=== PATIENT | male | born 1950 | race Caucasian/White ===

== ENCOUNTER → 2021-03-16 | Outpatient (CLI) | payer OTHER ==
[~2021-03-16] MED LIST: ASA81BEC PO; ATENOLOL 25 MG25 M1 PO; CARVEDILOL3.125 MG PO; CENTANY30 GM NARES; CO-ENZYME Q-1010 MG PO; COREG6.25 MG PO; CRESTOR40 MG PO; ENTRESTO 49 MG1 EACH PO; JARDIANCE10 MG PO; METFORMIN HCL500 M3 PO; METFORMIN HCL500 MG PO; PACERONE 200 M200 M1 PO; SPIRONOLACTONE25 MG PO; TORSEMIDE20 MG PO; VITAMIN B-121000 MC2 SUBLING; VITAMIN D310 MC2 PO
== END ==
LOC: SJCVCIMAG 11:37 → SJCVC 11:37
PROVIDERS: ATTEND Internal Medicine Cardiovascular Disease
DX: I08.8 Other rheumatic multiple valve diseases (principal); I49.3 Ventricular premature depolarization; R94.31 Abnormal electrocardiogram [ECG] [EKG]; I25.5 Ischemic cardiomyopathy; E78.00 Pure hypercholesterolemia, unspecified; I25.10 Atherosclerotic heart disease of native coronary artery without angina pectoris; I13.0 Hypertensive heart and chronic kidney disease with heart failure and stage 1 through stage 4 chronic kidney disease, or unspecified chronic kidney disease; E11.22 Type 2 diabetes mellitus with diabetic chronic kidney disease; N18.30 Chronic kidney disease, stage 3 unspecified; I50.23 Acute on chronic systolic (congestive) heart failure; R06.00 Dyspnea, unspecified; Z87.891 Personal history of nicotine dependence; Z72.89 Other problems related to lifestyle; Z79.82 Long term (current) use of aspirin; Z79.899 Other long term (current) drug therapy; Z82.49 Family history of ischemic heart disease and other diseases of the circulatory system; Z88.8 Allergy status to other drugs, medicaments and biological substances; Z79.84 Long term (current) use of oral hypoglycemic drugs; Z88.1 Allergy status to other antibiotic agents

== ENCOUNTER 2021-03-24 08:56 | Inpatient (IN) | payer OTHER ==
[~2021-03-24] VITALS: Ht 172.7 cm; Wt 83.0 kg
[2021-03-24] MEDS ORDERED: ASA81BEC PO (10:46)
[2021-03-24] MEDS ORDERED: ATENOLOL 25 MG25 M1 PO (10:47)
[2021-03-24] MEDS ORDERED: VITAMIN D310 MC2 PO (10:48)
[2021-03-24] MEDS ORDERED: CO-ENZYME Q-1010 MG PO (10:49)
[2021-03-24] MEDS ORDERED: VITAMIN B-121000 MC2 SUBLING (10:49)
[2021-03-24] MEDS ORDERED: CRESTOR40 MG PO (10:50)
[2021-03-24] MEDS ORDERED: METFORMIN HCL500 M3 PO (10:50)
[2021-03-24] MEDS ORDERED: ENTRESTO 49 MG1 EACH PO (10:51)
[2021-03-24] MEDS ORDERED: JARDIANCE10 MG PO (10:51)
[2021-03-24] MEDS ORDERED: SPIRONOLACTONE25 MG PO (10:52)
[2021-03-24] MEDS ORDERED: TORSEMIDE20 MG PO (10:52)
[2021-03-24 11:03] VITALS: BP 1220/80
--- NOTE | 2021-03-24 18:08 | CATHLAB ---
[facility] [place] [address] INVASIVE PROCEDURE REPORT Name: JALEEL CROUCH Room #: 216-P ADM Alexandra Rob#: [id number] Admission: 03/24/21 Attend Phys: Gibson Kumar MD, Discharge: Date of : 50 Report #: [id number] THIS REPORT FOR: cc: Raffy Miller MD, Brian MD Mancuso, Gerald M. MD [facility] ~ APPROVED REPORT Study performed: 03/24/2021 12:58:37 Patient Details Patient Status: Out-Patient Room #: The patient is a 70 year-old male Event Personnel Gibson Kumar Maintenance Controller, Xochilt Mason RN RN, Haylee Grimaldo RTR, Guy Guzman Roberta Monitor Procedures Performed Art Access - R femoral artery;Garett Access - R femoral vein Art Access - L femoral artery* Right and Left Heart Cath w/or w/o Coronarie [id number] RLHC Aortogram Abdominal Peripheral Angio 792362 Renal Bilateral Peripheral Angiography 2274642 CVRENALBIL Hemostasis w/ Mynx Hemostasis with Manual pressure 48248 Initial Mod Sed Same Phys/QHP Gr5y 388798 24694 Mod Sed Same Phys/QHP Ea 446298 Indication Dyspnea, Positive stress test Procedure Narrative The Right Groin^ was infiltrated with 1% Lidocaine subcutaneous anesthesia. A PINNACLE 6FR Sheath #[id number] sheath was inserted into the RFA. Coronary angiography was performed using coronary diagnostic catheters. The right coronary system was accessed and visualized with a JR4 catheter. The left coronary system was accessed and visualized with a JL4 catheter. The left ventricle was accessed and visualized with a PIGTAIL catheter. Left ventriculogram was performed in ARIAS projection. An aortogram of the abdominal aorta was performed. Closure device was deployed with a 6 Fr MYNX CONTROL 6F/7F L#[id number]. Hemostasis was obtained with manual pressure following sheath removal without any complications. The patient tolerated the procedure well and there were no complications associated with the procedure. There was no hematoma. [facility] [address] [place] [address] INVASIVE PROCEDURE REPORT Name: JALEEL CROUCH Room #: 216-P [facility] IN .R.#: [id number] Admission: 03/24/21 Attend Phys: Gibson Kumar, Discharge: Date of : 50 Report #: [id number] Intraoperative Conscious Sedation Sedation start time: 13:33 Case end Time: 15:59 Fentanyl 100 mcg Versed 2 mg Fluoro Time: 10.70 minutes Dose: DAP 11616.80 cGycm2 1510 mGy Contrast Type and Amount: Visipaque 114 ml Hemodynamics The right atrial mean pressure is 8 mmHg. The right ventricular pressure is 35/6 mmHg. The pulmonary artery pressure is 38/24 mmHg with a mean of 29 mmHg. The mean pulmonary capillary wedge pressure is 29 mmHg. The aortic pressure is 121/68 mmHg with a mean of 92 mmHg. The left ventricular pressure is 123/12 mmHg with a mean of mmHg. The left ventricular end diastolic pressure is 27 mmHg. The cardiac output using thermo method is 4.55 L/min. The cardiac index using thermo method is 2.19 L/min/m2. Conclusion #1 Successful right heart catheterization with cardiac output by thermodilution. See above hemodynamics. #2 right common iliac occlusion is noted. #3 abdominal aortogram revealing heavily calcified abdominal aorta with no aneurysm significant stenosis in the left iliac of probable 70% the right common iliac is occluded. Collateral filling is noted late filling of the distal right external iliac. Significant collateral vessels are noted #4 the left main is heavily calcified and moderate disease giving rise to an LAD and a circumflex. #5 LAD heavily calcified and a total or subtotal proximal segment filling a moderately diseased LAD to the apex. Multiple septal perforators to the inferior wall that appears #6 there is a high rising OM or ramus branch that is mild to moderately diseased but is the largest of the systems and patent it appears to come off the left main. #7 ostial circumflex has high-grade calcified disease subtotally occluded ROQUE grade I-II flow in a moderate size OM that extends to the inferior lateral wall. #8 a probable codominant or nondominant right coronary is occluded and faint collateral filling to this PDA JOSÉ system from the left system. Again it appears to be somewhat of an original codominant system. #9 dilated left ventricle with moderately severe global hypokinesis the inferior base is akinetic there is some contraction of the [facility] [address] [place] [address] INVASIVE PROCEDURE REPORT Name: JALEEL CROUCH Room #: 216-P [facility] IN M.R.#: [id number] Admission: 03/24/21 Attend Phys: Gibson Kumar, Discharge: Date of : 50 Report #: [id number] anterior apical wall. EF 20%. Recommendations and plan: Extensive evaluation discussion with CV surgery and interventional cardiology. Extremely high risk for percutaneous or revascularization by bypass. Consideration for Impella assist and laser of significant calcified LAD possible circumflex intervention. Needs diuresis and aggressive tuneup prior to entertaining revascularization in any mode. Patient is hemodynamically stable and pain-free transfer to the CCU. Right iliac is occluded possible intervention at a later date. Moderate Adi disease left iliac. Diffusely diseased aorta as stated above. Balloon pump presumably could be placed through the left femoral artery and or Impella assist device. <ELECTRONICALLY SIGNED> By: Gibson Kumar MD, FACC 03/24/211807 07 07 Gibson Kumar MD, FACC /INF
[2021-03-24 20:05] VITALS: BP 121/84
[2021-03-24 20:47] VITALS: BP 132/85
[2021-03-25] VITALS (7 sets, daily range): BP systolic 94–135; BP diastolic 66–91
[2021-03-25 02:59] LABS: HEMATOCRIT 44.4 % (42.0-52.0); HEMOGLOBIN 14.8 gm/dL (14.0-18.0); MCH 31.6 pg (26.0-34.0); MCHC 33.3 g/dL (28.0-37.0); MCV 94.8 fL (80.0-100.0); RBC 4.68 mil/uL (4.50-6.00); RDW 13.6 % (10.5-14.5); WBC 4.6 thou/uL (4.0-11.0)
[2021-03-25 03:13] LABS: APTT 28.5 Seconds (24.5-32.8); PROTIME 10.9 Seconds (10.5-12.1)
[2021-03-25 04:37] LABS: CALCIUM 8.9 mg/dL (8.5-10.1); CREATININE 1.3 mg/dL (0.7-1.3); POTASSIUM 3.6 mmol/L (3.5-5.1)
[2021-03-26 04:01] LABS: ALBUMIN 2.8 g/dL (3.4-5.0); CALCIUM 8.8 mg/dL (8.5-10.1); CREATININE 1.6 mg/dL (0.7-1.3); TOTAL BILIRUBIN 0.8 mg/dL (0.2-1.0); TOTAL PROTEIN 7.4 g/dL (6.4-8.2)
[2021-03-26 04:45] VITALS: BP 126/55; BP 98/63
[2021-03-26 07:55] VITALS: BP 93/67
[2021-03-26 11:55] VITALS: BP 104/61
[2021-03-26 15:30] VITALS: BP 101/62
[2021-03-26 20:17] VITALS: BP 101/65
[2021-03-27 04:40] VITALS: BP 93/60
[2021-03-27 07:50] VITALS: BP 122/71
[2021-03-27 11:45] VITALS: BP 101/66
[2021-03-27 15:40] VITALS: BP 104/69
[2021-03-27 20:34] VITALS: BP 122/73
[2021-03-28] VITALS (14 sets, daily range): BP systolic 100–115; BP diastolic 53–75
[2021-03-28 08:55] LABS: HEMATOCRIT 43.2 % (42.0-52.0); HEMOGLOBIN 14.3 gm/dL (14.0-18.0); MCH 31.3 pg (26.0-34.0); MCHC 33.1 g/dL (28.0-37.0); MCV 94.5 fL (80.0-100.0); RBC 4.58 mil/uL (4.50-6.00); RDW 13.8 % (10.5-14.5); WBC 7.4 thou/uL (4.0-11.0)
[2021-03-28 09:07] LABS: CALCIUM 9.1 mg/dL (8.5-10.1); CREATININE 1.3 mg/dL (0.7-1.3); POTASSIUM 4.1 mmol/L (3.5-5.1)
[2021-03-28 14:31] LABS: ABSOLUTE NEUTROPHILS 5.4 thou/uL (1.4-8.2); BASOPHILS 0.7 % (0.0-2.0); EOSINOPHILS 1.1 % (0.0-3.0); HEMATOCRIT 43.3 % (42.0-52.0); HEMOGLOBIN 14.4 gm/dL (14.0-18.0); LYMPHOCYTES 8.2 % (24.0-44.0); MCH 31.4 pg (26.0-34.0); MCHC 33.2 g/dL (28.0-37.0); MCV 94.6 fL (80.0-100.0); MONOCYTES 9.5 % (1.0-8.0); PLATELET COUNT 265 thou/uL (150-400); POLYS 80.5 % (36.0-66.0); RBC 4.58 mil/uL (4.50-6.00); RDW 13.7 % (10.5-14.5); WBC 6.7 thou/uL (4.0-11.0)
[2021-03-28 14:33] LABS: CALCIUM 9.3 mg/dL (8.5-10.1); CREATININE 1.3 mg/dL (0.7-1.3)
[2021-03-28 14:35] LABS: POTASSIUM 4.5 mmol/L (3.5-5.1)
[2021-03-28 14:40] LABS: ALBUMIN 2.8 g/dL (3.4-5.0); TOTAL BILIRUBIN 1.1 mg/dL (0.2-1.0); TOTAL PROTEIN 7.1 g/dL (6.4-8.2)
[2021-03-28 14:42] LABS: APTT 27.9 Seconds (24.5-32.8); PROTIME 10.9 Seconds (10.5-12.1)
[2021-03-28] MEDS ORDERED: COREG6.25 MG PO (16:41)
[2021-03-28] MEDS ORDERED: METFORMIN HCL500 M3 PO (16:42)
[2021-03-28 18:28] LABS: URINE BILIRUBIN NEGATIVE (Negative); URINE BLOOD NEGATIVE (Negative); URINE CLARITY CLEAR; URINE COLOR YELLOW; URINE GLUCOSE-RANDOM* NEGATIVE (Negative); URINE KETONES TRACE (Negative); URINE LEUKOCYTES-REFLEX NEGATIVE (Negative); URINE NITRITE-REFLEX NEGATIVE (Negative); URINE PROTEIN (DIPSTICK) TRACE (Negative); URINE UROBILINOGEN 0.2 E.U./dl (0.2-1.0)
[2021-03-29] VITALS (7 sets, daily range): BP systolic 98–106; BP diastolic 57–65
[2021-03-29 04:56] LABS: HEMATOCRIT 40.5 % (42.0-52.0); HEMOGLOBIN 13.5 gm/dL (14.0-18.0); MCH 31.3 pg (26.0-34.0); MCHC 33.3 g/dL (28.0-37.0); RBC 4.31 mil/uL (4.50-6.00); RDW 14.1 % (10.5-14.5); WBC 6.6 thou/uL (4.0-11.0)
[2021-03-29 05:01] LABS: CALCIUM 8.6 mg/dL (8.5-10.1); CREATININE 1.4 mg/dL (0.7-1.3); POTASSIUM 4.2 mmol/L (3.5-5.1)
[2021-03-29 07:08] LABS: GLYCOHEMOGLOBIN (HGB A1C) 7.5 % (4.8-5.6)
--- NOTE | 2021-03-29 08:11 | HC ---
[facility] [place] [address] CONSULTATION Name: JALEEL CROUCH Room #: 216-P ADM IN M.R.#: [id number] Admission: 03/24/21 Attend Phys: Gibson Kumar MD, Discharge: Date of : 50 Report #: [id number] THIS REPORT FOR: cc: Raffy Miller MD, Brian MD Forman,Kwabena Bush MD ~ We were asked by Dr. Denson to see the patient. HISTORY OF PRESENT ILLNESS: The patient is a 70-year-old admitted on 03/24/2021 for coronary artery disease and heart failure. The patient states he has a several-month history of progressive shortness of breath. This was improved by treatment for heart failure and fluid retention. The patient is normally followed by Dr. Ritesh Miller and Dr. Js Diaz in [place]. The patient was scheduled for cardiac catheterization and this was done at this institution as research was not able to accommodate the patient until March. We note that cardiac echo shows a severely reduced ventricular function with a left ventricular ejection fraction of 20%. Cardiac catheterization done on shows severe 3-vessel coronary artery disease with again poor left ventricular function in the 20% range. PAST MEDICAL HISTORY: Significant for hypertension, dyslipidemia, diabetes mellitus, chronic renal dysfunction. HOME MEDICATIONS: Includes aspirin, atenolol, metformin, rosuvastatin, Entresto, ____, spironolactone, torsemide, vitamins. ALLERGIES: ERYTHROMYCIN, which causes rash. SOCIAL HISTORY: Former smoker, quit over 20 years ago. The patient is retired from his work as an automotive parts manager. REVIEW OF SYSTEMS: GENERAL: Denies fever or chills. EYES: Wears glasses. HEENT: Denies headache, sinus problems. CARDIAC: As mentioned, shortness of breath that improved with diuretic treatment. Denies angina. Denies palpitations. RESPIRATORY: Denies cough. Claims he is able to climb 1 flight of stairs without dyspnea. GASTROINTESTINAL: Denies nausea, vomiting. GENITOURINARY: Denies urgency, frequency. MUSCULOSKELETAL: Complains of left hip pain, which limits his walking. [facility] [address] [place] [address] CONSULTATION Name: JAELEL CROUCH Room #: 216-P [facility] IN M.R.#: [id number] Admission: 03/24/21 Attend Phys: Gibson Kumar MD, Discharge: Date of : 50 Report #: [id number] NEUROLOGIC: Denies motor or sensory dysfunction. SKIN: Denies rash or infection. ENDOCRINE: Denies goiter, tremor. HEMATOLOGIC: Denies bruisability, bleeding. PHYSICAL EXAMINATION: GENERAL: The patient is in bed, in comfort. VITAL SIGNS: Temperature 36.7, heart rate 83, blood pressure 101/70, respiratory rate 18, O2 sat 95 on room air. The patient is mesomorph, not particularly frail looking. HEENT: No scleral icterus. No arcus. NECK: No mass, no bruit. CHEST: Clear with him to have rales on the right base. HEART: Rhythm regular. No murmur audible. ABDOMEN: Soft. EXTREMITIES: No clubbing, cyanosis or edema. VASCULAR: I do not feel dorsalis pedis or posterior tibial pulses. No obvious saphenous vein problems. SKIN: No rash or infection. NEUROLOGIC: No motor or sensory dysfunction. MUSCULOSKELETAL: No bone or joint asymmetry or deformity. PSYCHIATRIC: Oriented x 3. Shows insight into problem and is a pleasant fellow. ASSESSMENT AND PLAN: The patient has severe 3-vessel coronary artery disease with severe reduced ventricular function and comorbid factors. The patient is at reasonably high risk for surgery and, according to the CHRISTAL data, may not be benefited by surgery. Risks and details and options, and alternatives were discussed. I have noted that Dr. Denson has planned for angioplasty with Impella standby. We have been asked to be aware of this. The patient understands all of this and agrees with this approach. Thank you for the consult. <ELECTRONICALLY SIGNED> By: Kwabena Rooney MD 03/29/21 0811 0831 1023 Kwabena Rooney MD /nt
--- NOTE | 2021-03-29 13:05 | CATHLAB ---
[facility] [place] [place] [address] INVASIVE PROCEDURE REPORT Name: JALEEL CROUCH Room #: 216-P ADM IN M.R.#: [id number] Admission: 03/24/21 Attend Phys: Gibson Kumar MD, Discharge: Date of : 50 Report #: [id number] THIS REPORT FOR: cc: Raffy Miller MD, Brian MD Park, Jin S. MD ~ APPROVED REPORT Study performed: 03/28/2021 09:15:57 Patient Details Patient Status: In-Patient Room #: The patient is a 70 year-old male Event Personnel Josh Alex Senior Developer, Scarlett Tovar Monitor, Kimmy Bynum RTR Monitor,, Haylee Grimaldo RTR, RACK WASHER Scrub, Caro Crum RN RN, Alea Landry RN Procedures Performed Art Access - L femoral artery* 51464 Initial Mod Sed Same Phys/QHP Gr5y 104074 62213 Mod Sed Same Phys/QHP Ea 482110 Hemostasis with Manual pressure Indication CHF Current Status: , Dyspnea, Heart failure, Cardiomyopathy, The patient initially presented with dyspnea attributed to congestive heart failure. Cardiac evaluation revealed severe multivessel disease and severe ischemic cardiomyopathy, EF of 20%. Please see recent right and left cardiac catheterization report for full details. Cardiothoracic surgical consultation was obtained, deemed high risk for CABG. He now presents for high risk PCI involving the severe occlusion of the proximal LAD with assistance with the Impella device. Risk Factors Peripheral Vascular Disease, HypercholesterolemiaPhysical Activity, Coronary Artery DiseaseHypertension, Tobacco History () Previous Procedures/Diagnoses Previous CHFPrevious NM Procedure Narrative The Left Groin^ was infiltrated with 1% Lidocaine subcutaneous [facility] [address] [place] [address] INVASIVE PROCEDURE REPORT Name: JALEEL CROUCH Room #: 216-P [facility] IN ..#: [id number] Admission: 03/24/21 Attend Phys: Gibson Kumar, Discharge: Date of : 50 Report #: [id number] anesthesia. A 14 FR sheath was inserted into the RFA. Coronary angiography was performed using coronary diagnostic catheters. Hemostasis was obtained with manual pressure following sheath removal without any complications. This procedure was done with a Impella device placed in the patient for protection during intervention. After procedure Basilio pulled by Dr. ALEX and he held for 20 minutes Haylee Grimaldo held for the remaining time. The manual hold was for 70 minutes. Intraoperative Conscious Sedation Sedation start time: 942 Case end Time: 121 Fentanyl 50 mcg Versed 2 mg Fluoro Time: 25.80 minutes Dose: DAP 30107.80 cGycm2 3542 mGy Contrast Type and Amount: Visipaque 160 ml Coronary Angiography The patient's coronary anatomy is co- dominant. Diagnostic Cath LAD There is a subtotal stenosis in the proximal LAD at the bifurcation of the first septal tooth clerk with ROQUE II flow of the mid and distal LAD segments. Circumflex Subtotal occlusion at the ostium Hemodynamics The left ventricular pressure is 105/15 mmHg with a mean of mmHg. The left ventricular end diastolic pressure is 25 mmHg. PCI Technique Lesion Percutaneous coronary intervention was performed on the proximal left anterior descending artery segment. The lesion stenosis prior to intervention was 100% with ROQUE 2 flow. A VISTA 6FR XB 3.5 #[id number] Guide Catheter was used to engage the LCA ostium. A Luge Wire .014 x 182CM #[id number] Interventional Guidewire was used to cross the lesion. BALLOON DILATION The lesion was crossed with the Luge .014 wire, but was unsuccessful trying to cross with the following balloons: 1.5x12mm Sprinter and 1.3qeg11qa mini Trek. After multiple attempts procedure was aborted. COMMENTS [facility] [address] [place] [address] INVASIVE PROCEDURE REPORT Name: JALEEL CROUCH Room #: 216-P [facility] IN .R.#: [id number] Admission: 03/24/21 Attend Phys: Gibson Kumar, Discharge: Date of : 50 Report #: [id number] Due to the patient's presentation with severe multivessel disease, congestive heart failure and EF of 20%, an Impella device was placed for assistance with the high risk PCI. Initially, a 6 Kosovan system was placed into the left femoral artery via a modified Seldinger technique. A pigtail catheter was placed into the left ventricle, measured LVEDP was 26 mmHg. I then inserted a short-term external heart assist system via the left femoral artery into the left ventricle. During the procedure we had continuous monitoring of the cardiac output using the impeller pump. At the end of the procedure, I removed the external heart assist system. As above, a luge wire was used to cross the total occlusion in the LAD, with an over the wire balloon system as support. I then tried to pass a 1.5 x 12 mm sprinter balloon across the stenosis, multiple times. All attempts were unsuccessful. I then used a 1.2 mm mini trek balloon, again unsuccessful on several attempts. I then tried to place a second wire as a "herminia system" but was unsuccessful. It seems that the stenosis in the LAD is totally occluded with probable partial recannulization making it difficult to allow passage of smallest balloons. The patient remained hemodynamically stable throughout the procedure. At this point, the procedure was aborted and the Impella device was removed. Referred for CABG. Conclusion 1. The patient presented with CHF, multivessel disease and severe ischemic cardiomyopathy. An Impella device was placed and removed for assistance for the high risk PCI. 2. Unsuccessful PCI due to inability to cross the stenosis with a balloon. 3. The patient remained hemodynamically stable throughout the procedure. 4. Recommend CABG and guideline directed medical therapy. <ELECTRONICALLY SIGNED> By: Josh Alex MD 03/29/21 1304 1304 1304 Josh Alex MD /INF
[2021-03-29] MEDS ORDERED: CENTANY30 GM NARES (15:45)
[2021-03-31] MEDS ORDERED: COREG6.25 MG PO (11:53)
[2021-03-31] MEDS ORDERED: METFORMIN HCL500 MG PO (11:56)
== END 2021-03-29 18:10 | disposition home or self-care (01) | DRG 216 ==
LOC: CATH 08:56 → 2N 17:09
PROVIDERS: Internal Medicine Cardiovascular Disease; Surgery Vascular Surgery; ADMIT Internal Medicine Cardiovascular Disease; ATTEND Internal Medicine Cardiovascular Disease
DX: I25.10 Atherosclerotic heart disease of native coronary artery without angina pectoris (principal); I50.23 Acute on chronic systolic (congestive) heart failure; I13.0 Hypertensive heart and chronic kidney disease with heart failure and stage 1 through stage 4 chronic kidney disease, or unspecified chronic kidney disease; I74.5 Embolism and thrombosis of iliac artery; I25.5 Ischemic cardiomyopathy; Z53.8 Procedure and treatment not carried out for other reasons; E78.00 Pure hypercholesterolemia, unspecified; N18.30 Chronic kidney disease, stage 3 unspecified; I27.20 Pulmonary hypertension, unspecified; I70.203 Unspecified atherosclerosis of native arteries of extremities, bilateral legs; E11.22 Type 2 diabetes mellitus with diabetic chronic kidney disease; Z88.1 Allergy status to other antibiotic agents; Z95.5 Presence of coronary angioplasty implant and graft; Z87.891 Personal history of nicotine dependence
CPT/HCPCS: 10081

== ENCOUNTER 2021-04-04 05:35 | Inpatient (IN) | payer OTHER ==
[2021-04-04] VITALS (18 sets, daily range): BP systolic 100–135; BP diastolic 43–70
[~2021-04-04] VITALS: Ht 172.7 cm; Wt 85.9 kg
[~2021-04-04 05:35] MED LIST changes: -CARVEDILOL3.125 MG PO; -PACERONE 200 M200 M1 PO
[2021-04-04 14:19] LABS: HEMATOCRIT 26.5 % (42.0-52.0); MCH 31.7 pg (26.0-34.0); MCHC 33.7 g/dL (28.0-37.0); MCV 94.2 fL (80.0-100.0); RBC 2.81 mil/uL (4.50-6.00); RDW 14.4 % (10.5-14.5); WBC 9.5 thou/uL (4.0-11.0)
[2021-04-04 14:23] LABS: HEMOGLOBIN 8.9 gm/dL (14.0-18.0)
[2021-04-04 14:39] LABS: APTT 30.5 Seconds (24.5-32.8); INR 1.41
[2021-04-04 14:41] LABS: PROTIME 15.1 Seconds (10.5-12.1)
[2021-04-04 15:06] LABS: POC BE 3 mmol/L (-2.0 to +3.0); POC CA IONIZED 4.4 mg/dL (4.5-5.3); POC GLUCOSE 172 mg/dL (70-99); POC HEMOGLOBIN 9.2 g/dL (14.0-18.0); POC POTASSIUM 5.1 mmol/L (3.5-5.1); POC SODIUM 138 mmol/L (136-145); POC pCO2 44.3 mmHg (35.0-45.0); POC pH 7.409 (7.360-7.450)
[2021-04-04 15:06] LABS: POC BE 3 mmol/L (-2.0 to +3.0); POC CA IONIZED 4.9 mg/dL (4.5-5.3); POC GLUCOSE 173 mg/dL (70-99); POC HCO3 27.4 mmol/L (22.0-26.0); POC HEMOGLOBIN 9.2 g/dL (14.0-18.0); POC POTASSIUM 4.4 mmol/L (3.5-5.1); POC SODIUM 139 mmol/L (136-145); POC pH 7.412 (7.360-7.450)
[2021-04-04 15:06] LABS: POC BE 2 mmol/L (-2.0 to +3.0); POC CA IONIZED 4.4 mg/dL (4.5-5.3); POC GLUCOSE 155 mg/dL (70-99); POC HCO3 25.9 mmol/L (22.0-26.0); POC HEMOGLOBIN 9.2 g/dL (14.0-18.0); POC SODIUM 138 mmol/L (136-145); POC pCO2 39.5 mmHg (35.0-45.0); POC pH 7.426 (7.360-7.450)
[2021-04-04 15:06] LABS: POC BE 2 mmol/L (-2.0 to +3.0); POC CA IONIZED 4.7 mg/dL (4.5-5.3); POC GLUCOSE 164 mg/dL (70-99); POC HCO3 26.2 mmol/L (22.0-26.0); POC HEMOGLOBIN 11.6 g/dL (14.0-18.0); POC POTASSIUM 4.3 mmol/L (3.5-5.1); POC SODIUM 137 mmol/L (136-145); POC pCO2 40.9 mmHg (35.0-45.0); POC pH 7.413 (7.360-7.450)
[2021-04-04 15:06] LABS: POC BE 3 mmol/L (-2.0 to +3.0); POC CA IONIZED 4.8 mg/dL (4.5-5.3); POC GLUCOSE 146 mg/dL (70-99); POC HCO3 26.4 mmol/L (22.0-26.0); POC HEMOGLOBIN 10.9 g/dL (14.0-18.0); POC POTASSIUM 3.9 mmol/L (3.5-5.1); POC SODIUM 136 mmol/L (136-145); POC pCO2 36.6 mmHg (35.0-45.0); POC pH 7.466 (7.360-7.450)
[2021-04-04 15:06] LABS: POC BE 2 mmol/L (-2.0 to +3.0); POC CA IONIZED 4.5 mg/dL (4.5-5.3); POC GLUCOSE 166 mg/dL (70-99); POC HCO3 27.4 mmol/L (22.0-26.0); POC HEMOGLOBIN 9.9 g/dL (14.0-18.0); POC POTASSIUM 4.5 mmol/L (3.5-5.1); POC SODIUM 138 mmol/L (136-145); POC pCO2 46.3 mmHg (35.0-45.0); POC pH 7.379 (7.360-7.450)
[2021-04-04 15:06] LABS: POC BE -2 mmol/L (-2.0 to +3.0); POC CA IONIZED 4.7 mg/dL (4.5-5.3); POC GLUCOSE 164 mg/dL (70-99); POC HCO3 23.1 mmol/L (22.0-26.0); POC HEMOGLOBIN 9.9 g/dL (14.0-18.0); POC POTASSIUM 4.1 mmol/L (3.5-5.1); POC SODIUM 140 mmol/L (136-145); POC pCO2 39.8 mmHg (35.0-45.0); POC pH 7.372 (7.360-7.450)
[2021-04-04 15:06] LABS: POC BE 0 mmol/L (-2.0 to +3.0); POC CA IONIZED 4.8 mg/dL (4.5-5.3); POC GLUCOSE 188 mg/dL (70-99); POC HCO3 24.8 mmol/L (22.0-26.0); POC HEMOGLOBIN 9.2 g/dL (14.0-18.0); POC POTASSIUM 4.2 mmol/L (3.5-5.1); POC SODIUM 139 mmol/L (136-145); POC pCO2 40.6 mmHg (35.0-45.0); POC pH 7.395 (7.360-7.450)
[2021-04-04 15:06] LABS: POC BE 2 mmol/L (-2.0 to +3.0); POC CA IONIZED 4.5 mg/dL (4.5-5.3); POC GLUCOSE 163 mg/dL (70-99); POC HCO3 26.2 mmol/L (22.0-26.0); POC HEMOGLOBIN 9.5 g/dL (14.0-18.0); POC POTASSIUM 4.3 mmol/L (3.5-5.1); POC SODIUM 138 mmol/L (136-145); POC pCO2 39.2 mmHg (35.0-45.0); POC pH 7.433 (7.360-7.450)
[2021-04-04 15:54] LABS: BE(vivo) -4.8 mmol/L (-2 to +3); HCO3 20.8 mmol/L (22.0-26.0); PCO2 40.7 mmHg (35.0-45.0); PO2 143.6 mmHg (80.0-100.0); pH 7.327 (7.360-7.450); sO2 98.7 % (92.0-98.0)
[2021-04-04 16:07] LABS: HEMOGLOBIN 10.4 gm/dL (14.0-18.0); MCH 31.4 pg (26.0-34.0); MCHC 33.4 g/dL (28.0-37.0); RBC 3.3 mil/uL (4.50-6.00); RDW 14.2 % (10.5-14.5); WBC 14.2 thou/uL (4.0-11.0)
[2021-04-04 16:16] LABS: CALCIUM 7.4 mg/dL (8.5-10.1); CREATININE 1.1 mg/dL (0.7-1.3); MAGNESIUM 2.2 mg/dL (1.8-2.4); POTASSIUM 4.3 mmol/L (3.5-5.1)
[2021-04-04 16:25] LABS: APTT 29.3 Seconds (24.5-32.8); INR 1.08; PROTIME 11.7 Seconds (10.5-12.1)
[2021-04-04 19:27] LABS: CALCIUM 8.3 mg/dL (8.5-10.1); CREATININE 1.2 mg/dL (0.7-1.3); POTASSIUM 4.8 mmol/L (3.5-5.1)
[2021-04-04 19:32] LABS: BE(vivo) -2.1 mmol/L (-2 to +3); HCO3 21.5 mmol/L (22.0-26.0); PCO2 32.9 mmHg (35.0-45.0); pH 7.433 (7.360-7.450); sO2 98.4 % (92.0-98.0)
--- NOTE | 2021-04-04 19:50 | NUR ---
PT ARRIVED FROM THE OR WITH OR STAFF ESCORT AT 1540, AT THE TIME OF ARRIVAL PT WAS ON PROPOFOL/DOBUTAMINE. RN LATER DISCUSSED GOALS OF CARE FOR THE EVENING WITH . GOAL OF CARE THIS EVENING IS TO EXTUBATE PATIENT TOLERATED, RN AT THE END OF HIS CARE WAS NOT ABLE TO BRING PT TO LEVEL OF EXTUBATION. PROPOFOL WAS WEANED OFF AND DISCONTINUED AT 1800, NOT LONG AFTER PT WAS ABLE TO FOLLOW COMMANDS, NOD APPROPERIATELY, BUT UNABLE TO COMPLETELY OPEN EYES. PT ALSO ARRIVED WITH INTRA AORTIC BALLOON PUMP (IABP), AT THE TIME OF ARRIVAL PT WAS ON 1:1 AUGMENTATION, THE BP WAVEFORM, AUGMENTATED ARTERIAL LINE WAVEFORM, HEMODYNAMICS PRESENTED ACCEPTABLE. PT TOLERATED FEW HOURS CARE UNDER THIS RN WELL, PT'S SISTER JAI AND SON PAMELA STOPPED BY, RN PROVIDED UPDATES REGARDING GOALS OF CARE/ PLANS/ AND CURRENT TREATMENT. ALL VERBALIZED UNDERSTANDING AND GRATITUDE FOR EXPLANATION. WITH HIGH CONSIDERATION FOR BALLOON PUMP LOCATION, CONSTANT ASSESSMENT WAS MADE FOR UNDISRUPTED CIRCULATION TO THE BRAIN/LEFT ARM/LEFT LEG/KIDNEYS, AT THE END OF THE SHIFT PUPILS WERE EQUAL BILATERALLY, NO DIFFERENCE IN EITHER LOWER/UPPER EXTREMETIES, AND URINE OUTPUT RELATIVELY CONSTANT. PASSED ON REPORT TO NIGHT TIME RN FEB, NOW SIGNING OFF
--- NOTE | 2021-04-04 21:43 | NUR ---
CPAP TRIAL STARTED AT 2130; PT DOING WELL; O2 SAT 99% ON 35% FiO2, RESPIRATORY RATE 20-24, PULLING Tv 370-450, Mv 10.
[2021-04-04 22:15] LABS: BE(vivo) -2.7 mmol/L (-2 to +3); HCO3 21.7 mmol/L (22.0-26.0); PCO2 36.5 mmHg (35.0-45.0); PO2 137.9 mmHg (80.0-100.0); pH 7.393 (7.360-7.450); sO2 98.7 % (92.0-98.0)
--- NOTE | 2021-04-04 22:45 | NUR ---
Pt did well on CPAP trial; post ABGs within acceptable parameters. Pt extubated at 2240. Now on 4 L NC, sat 99%
[2021-04-05 00:12] VITALS: BP 117/54
[2021-04-05 04:12] VITALS: BP 113/81
[2021-04-05 05:16] LABS: HEMATOCRIT 28.1 % (42.0-52.0); HEMOGLOBIN 9.5 gm/dL (14.0-18.0); MCH 32.1 pg (26.0-34.0); MCHC 33.7 g/dL (28.0-37.0); RBC 2.96 mil/uL (4.50-6.00); RDW 14.6 % (10.5-14.5)
[2021-04-05 05:58] LABS: CALCIUM 7.9 mg/dL (8.5-10.1); CREATININE 1.1 mg/dL (0.7-1.3); MAGNESIUM 2.3 mg/dL (1.8-2.4); POTASSIUM 4.2 mmol/L (3.5-5.1)
[2021-04-05 08:12] VITALS: BP 127/61
--- NOTE | 2021-04-05 08:22 | NUR ---
Nutrition: pt post op CABG x 3. RD will followup to assess education needs when out of ICU/closer to D/C.
--- NOTE | 2021-04-05 08:23 | EKG ---
[facility] [place] [address] ELECTROCARDIOGRAM REPORT Name: JALEEL CROUCH Room #: 248-P ADM IN M.R.#: [id number] Admission: 04/04/21 Attend Phys: Kwabena Rooney MD Discharge: Date of : 50 Report #: [id number] [facility] Test Date: 2021-04-05 Test Time: 07:43:49 Pat Name: JALEEL CROUCH Department: Room: 248 P Gender: M Approver: : 1950 Requested By: Kwabena Rooney Order Number: [id number] MD: Rios Thomas Measurements Intervals [place] Rate: 125 P: 33 NC: 139 QRS: 14 QRSD: 89 T: 197 QT: 330 QTc: 476 Interpretive Statements Atrial flutter with 2: 1 AV conduction Low voltage, extremity and precordial leads Nonspecific ST and T wave abnormality Borderline prolonged QT interval No previous ECG available for comparison Electronically Signed On 04-05-2021 8:23:33 SCALLOP DREDGER by Rios Thomas [email or web address] <ELECTRONICALLY SIGNED> By: Rios Thomas MD, [facility] 04/05/2123 2 Rios Thomas MD, [facility] /EPI
--- NOTE | 2021-04-05 09:14 | NUR ---
PT SEEN BY DR.FORMAN JUNG 0800, RN DISCUSSED GOALS OF CARE AT BEDSIDE, PLAN IS TO WEAN IABP VIA TITRATION OF BALLOON VOLUME, SEE HOW PT TOLERATES THROUGHOUT THE DAY AND CONTINUE WORKING ON WEANING, DOBUTAMINE IS TO CONTINUE RUNNING UNTIL BALLOON IS OUT THEN SLOWLY TITRATE OFF, DIET IS TO ADVANCE TOLERATED, AND INSULIN GTT CAN BE DC'D PER NURSING JUDGEMENT. TITRATED THE VOLUME INFLATED IN BALLOON DOWN BY 50% PRIOR TO LEAVING. PT TOLERATED PT SEEN BY AFTERWARDS, RATE OF AUGMENTATION TURNED DOWN TO 1:2 BY , RN MADE AWARE TO PT IABP VOLUME TITRATED DOWN 50%, MD AWARE, INSTRUCTED TO CONTINUE WEANING ON 1:2 PT SEEMS TO BE TOLERATING. RN INSTRUCTED TO MAKE CARDIOLOGY TEAM AWARE IF CHANGES DO OCCUR, STATED HE WILL SPEAK TO REGARDING THIS
[2021-04-05 12:11] VITALS: BP 120/54
--- NOTE | 2021-04-05 14:31 | NUR ---
INITIAL ASSESSMENT: Received consult. SW reviewed chart and spoke with nursing. Pt is POD #1 CABG x 3. Pt with hx CAD. Pt is in ICU. SW met with pt at bedside. Introduced role of SW. Pt is alert/orientated x 4. Pt reports he lives alone, in [place]. Prior to admission, pt was independent with ADLs. No use of DME. No hx of HH services or post-acute placement. Pt's P[facility] at [facility]. Pt was not on O2 prior to admission. PT/OT evals ordered. Pt states he will be staying with his girlfriend when he is discharged. She is a retired nurse. Pt's son and sister are also supportive and involved in pt's care. Awaiting input from therapy at this time. SW is following to assist as needed with discharge planning.
[2021-04-05 16:11] VITALS: BP 117/59
[2021-04-05 20:10] VITALS: BP 107/66
[2021-04-06 00:10] VITALS: BP 113/64
[2021-04-06 04:11] VITALS: BP 103/63
[2021-04-06 08:10] VITALS: BP 94/70
[2021-04-06 09:10] LABS: HEMATOCRIT 30.8 % (42.0-52.0); HEMOGLOBIN 10.3 gm/dL (14.0-18.0); MCH 31.7 pg (26.0-34.0); MCHC 33.5 g/dL (28.0-37.0); MCV 94.6 fL (80.0-100.0); RBC 3.25 mil/uL (4.50-6.00); RDW 14.5 % (10.5-14.5); WBC 9.4 thou/uL (4.0-11.0)
[2021-04-06 09:24] LABS: ALBUMIN 2.9 g/dL (3.4-5.0); CALCIUM 8.5 mg/dL (8.5-10.1); POTASSIUM 4.5 mmol/L (3.5-5.1); TOTAL BILIRUBIN 0.6 mg/dL (0.2-1.0); TOTAL PROTEIN 6.3 g/dL (6.4-8.2)
[2021-04-06 12:10] VITALS: BP 98/68
--- NOTE | 2021-04-06 12:37 | O ---
[facility] [place] [address] OPERATIVE REPORT Name: JALEEL CROUCH Room #: 248-P ADM IN M.R.#: [id number] Admission: 04/04/21 Attend Phys: Kwabena Rooney MD Discharge: Date of : 50 Report #: [id number] THIS REPORT FOR: cc: Raffy Miller MD, Brian MD Forman,Kwabena Bush MD ~ DATE OF SERVICE: 04/04/2021 PREOPERATIVE DIAGNOSIS: Coronary artery disease. POSTOPERATIVE DIAGNOSIS: Coronary artery disease. OPERATION: Coronary artery bypass x 3 including left internal mammary artery to left anterior descending artery, saphenous vein to marginal and saphenous vein to posterior descending artery and endoscopic harvest, right greater saphenous vein. SURGEON: Kwabena Rooney MD FINANCIAL ADMINISTRATOR: [place]. ANESTHESIA: General. INDICATIONS: The patient is a 70-year-old sent by Dr. Kumar with severe 3-vessel coronary artery disease. The patient has markedly reduced ventricular function with an ejection fraction in the 20% range. Unfortunately, the patient is not a candidate for balloon angioplasty or stent placement due to the severity of the disease. FINDINGS AND TECHNIQUE: After general anesthesia was established, saphenous vein was harvested using an endoscopic approach and prepared for use as a conduit. Exposure was obtained through median sternotomy. Left internal mammary artery was harvested. Pericardial well was made. Cannulation sutures were placed. Heparin was given. Aorta was cannulated. Right atrium was cannulated. Cardioplegia needle was positioned in the aortic root. Retrograde cardioplegic catheter was placed in the coronary sinus. Cardiopulmonary bypass was established. Aorta was cross clamped. Antegrade and retrograde cardioplegia were given. Ice was poured into the pericardial well. The heart was stopped. During electromechanical arrest, the distal anastomoses were performed. An end-to-side anastomosis was made between vein and the posterior descending artery that we were pleased to identify. Cold cardioplegia was given. Separate segment of vein was sewn in end-to-side fashion to the marginal artery that appeared by left to left collaterals. This was an intramyocardial vessel and [facility] [address] [place] [address] OPERATIVE REPORT Name: JALEEL CROUCH Room #: 248-P [facility] IN M.R.#: [id number] Admission: 04/04/21 Attend Phys: Kwabena Rooney MD Discharge: Date of : 50 Report #: [id number] was actually a decent sized target. Cold cardioplegia was given. Left internal mammary artery was sewn in end-to-side fashion to the left anterior descending artery. This was also intramyocardial. The anastomosis was checked with the temperature technique and the Doppler. Cold cardioplegia was given. Two proximal anastomoses were performed. When these were complete, warm retrograde cardioplegia was given followed by warm continuous blood through the coronary sinus. When this infusion was complete, crossclamp was removed. De-airing maneuvers were performed. The anastomoses were inspected and found to be satisfactory. As the patient warmed, nice cardiac activity resumed. Chest tubes and pacing wires were placed. A marker was placed around the proximal anastomoses. When the patient was warm, he was weaned from cardiopulmonary bypass on an intraaortic balloon pump that had been placed prior to surgery and dobutamine. Venous cannula was removed. Protamine was given, the aortic cannula was removed. Flows were measured in the bypass grafts. When hemostasis was satisfactory, chest was irrigated with antibiotic solution and closed in the usual fashion. The patient was taken to the Intensive Care Unit in reasonable condition considering the poor ventricular function. All counts were reported as correct. <ELECTRONICALLY SIGNED> By: Kwabena Rooney MD 04/06/21 1237 1854 1904 Kwabena Rooney MD /nt
[2021-04-06 14:41] VITALS: BP 109/76
[2021-04-07] VITALS (11 sets, daily range): BP systolic 93–116; BP diastolic 58–71
--- NOTE | 2021-04-07 07:18 | NUR ---
OOB TO TOILET W MINIMAL ASSIST X1 W GAIT BELT. PASSED A LOT OF GAS,VOIDED IN TOULET. TO CHAIR.PT W SPLINTING RESP'S, C/O LT SIDED PAIN,10/05. MED FOR PAIN.IN CHAIR W CHAIR ALARM,CALL FITZGERALD AT SIDE.ON RA AT PRESENT W O2 SATS .98%.CHELSIE VERY DAMPENED.NO OTHER NEEDS.--VW
--- NOTE | 2021-04-07 15:51 | NUR ---
UP IN THE CHAIR EARLY THIS MORNING. ALERT AND ORIENTED AND MEDICATED FOR PAIN WITH PRN MEDS. VITALS STABLE. A-LINE AND INTRODUCER DC'D BY NURSE AND PLEAURAL CT AND PACER WIRES DC'D BY DR. CARBAJAL THIS AFTERNOON. PATIENT DUE TO TRANSFER TO 203.
--- NOTE | 2021-04-07 18:00 | NUR ---
PT TRANSFERED TO THE UNIT FROM THE ICU. ORIENTED TO BED SPACE - ACCUCHECK NOT NEEDING COVEREAGE - NATHANIEL DIET AND FLUIDS. NO CO'S OF PAIN OR NAUSEA. SON INTO VISIT, NO CO'S AT THE PRESENT TIME.
[2021-04-08 05:16] VITALS: BP 110/70
--- NOTE | 2021-04-08 05:41 | NUR ---
SLEPT IN BED PART OF NOC THEN UP IN CHAIR. UP WITH STEADY GAIT. DENIES COMPLAINTS THIS AM. CONTINUE TO ASSES.
[2021-04-08] MEDS ORDERED: CARVEDILOL3.125 MG PO (08:09)
[2021-04-08] MEDS ORDERED: PACERONE 200 M200 M1 PO (08:09)
[2021-04-08 08:15] VITALS: BP 115/75
[2021-04-08 11:30] VITALS: BP 101/63
[2021-04-08 14:43] LABS: HEMATOCRIT 32.3 % (42.0-52.0); HEMOGLOBIN 10.6 gm/dL (14.0-18.0); MCH 31.3 pg (26.0-34.0); MCHC 32.8 g/dL (28.0-37.0); MCV 95.5 fL (80.0-100.0); RBC 3.38 mil/uL (4.50-6.00); RDW 14.4 % (10.5-14.5); WBC 9.4 thou/uL (4.0-11.0)
[2021-04-08 14:47] LABS: CREATININE 1.2 mg/dL (0.7-1.3); MAGNESIUM 1.8 mg/dL (1.8-2.4); POTASSIUM 4.1 mmol/L (3.5-5.1)
--- NOTE | 2021-04-08 15:27 | NUR ---
CHART REVIEWED AND DISCUSSED WITH CARE TEAM. PT WILL DC HOME WITH NO NEEDS AND STAT WITH HIS GIRLFRIEND WHO IS A RETIRED NURSE. PLAN TO DC SUNDAY. PT HAD VTACH THIS AM AND WILL MONITOR RHYTHM. THEY WILL RECHECK PNTHX VIA CXR IN AM. NO CM INTERVENTIONS AT THIS TIME.
[2021-04-08 16:00] VITALS: BP 110/71
--- NOTE | 2021-04-08 17:20 | NUR ---
ASSESSMENT CHARTED - MEDS PER APR -- PT STARTED ON COREG AND AMMIODOSING ADJUSTED THIS AM. UP AD DEB IN ROOM STEADY ON FEET. NATHANIEL DIET AND FLUIDS WITH NO CO'S OF NAUSEA. PT WITH CO'S OF PAIN THIS AM AND REFUSED PAIN MEDS. ACCUCHECKS CHARTED - LAB COMPLETED AND CALLED TO [facility] PAINT DIPPER REQUESTED. PT SHOWERED THIS AM - INCISION TO STERNUM CLEAN AND WELL APPROXIMATED, FADIA DRESSING REPLACED. DRESSINGS TO LEG HARVEST SITES REMOVED AND LEFT OPEN TO AIR ARE CHEST TUBE SITE AND PACER SITES. FAMILY INTO VISIT. NO CO'S AT THE PRESENT TIME.
[2021-04-08 20:15] VITALS: BP 105/58
[2021-04-09 04:45] VITALS: BP 104/69
[2021-04-09 05:49] LABS: ALBUMIN 2.5 g/dL (3.4-5.0); CALCIUM 8.3 mg/dL (8.5-10.1); CREATININE 1.2 mg/dL (0.7-1.3); POTASSIUM 3.9 mmol/L (3.5-5.1); TOTAL BILIRUBIN 0.7 mg/dL (0.2-1.0); TOTAL PROTEIN 6.2 g/dL (6.4-8.2)
[2021-04-09 07:20] VITALS: BP 97/63
--- NOTE | 2021-04-09 08:29 | NUR ---
ASSESSMENTS CHARTED, NO C/O PAIN, SLEEPING IN RECLINER WITH FEET ELEVATED, ENCOURAGED IS, REPORT GIVEN TO NEXT SHIFT TO CON'T PPOC
--- NOTE | 2021-04-09 10:52 | NUR ---
Assumed care of pt this Am. Pt is A&O x4, on RA, SR on the monitor. Pt states chest "discomfort" at the site but denies wanting pain medications. Pt w/ 6 beat run of Vtach this AM, cardiology on floor & notified. Pt asymptomatic. Plan to hopefully discharge today. Pt up w/ sternal precautions. Pt to use IS. Fall education performed.
[2021-04-09 11:17] VITALS: BP 97/63
--- NOTE | 2021-04-11 13:51 | EKG ---
[address] [place] [address] ELECTROCARDIOGRAM REPORT Name: JALEEL CROUCH Room #: [facility] IN M.R.#: [id number] Admission: 04/04/21 Attend Phys: Kwabena Rooney MD Discharge: 04/09/21 Date of : 50 Report #: [id number] 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[employer] : [id number] Requested By: Kwabena Rooney Order Number: [id number] MD: Macho Ochoa Measurements Intervals [place] Rate: 116 P: AK: QRS: 17 QRSD: 90 T: QT: 330 QTc: 459 Interpretive Statements Incomplete analysis due to missing data in precordial lead(s) Atrial fibrillation Low voltage, extremity leads Nonspecific T abnormalities, lateral leads Missing lead(s): V4 Compared to ECG 04/05/2021 07:43:49 T-wave abnormality now present Atrial flutter no longer present ST (T wave) deviation no longer present Electronically Signed On 04-11-2021 13:51:31 AUTOMATIC TIRE TESTER by Macho Ochoa [email or web address] <ELECTRONICALLY SIGNED> By: Macho Ochoa MD, FACC 04/11/21 1351 1 1 Macho Ochoa MD, FACC /EPI
== END 2021-04-09 12:43 | disposition home or self-care (01) | DRG 235 ==
LOC: OR 05:35 → ICU 06:39 → TBA 06:39 → EDSTATUS 09:24 → PRE 09:42 → ICU 15:33 → 2N 04-07 17:06
PROVIDERS: Nurse Practitioner Adult Health; Physician Assistant; ADMIT Surgery Vascular Surgery; ATTEND Surgery Vascular Surgery
PROC: 021109W Bypass Coronary Artery, Two Arteries from Aorta with Autologous Venous Tissue, Open Approach (ICD-10-PCS; principal; 2021-04-04)
PROC: 30233K1 Transfusion of Nonautologous Frozen Plasma into Peripheral Vein, Percutaneous Approach (ICD-10-PCS; principal; 2021-04-04)
PROC: 06BP4ZZ Excision of Right Saphenous Vein, Percutaneous Endoscopic Approach (ICD-10-PCS; principal; 2021-04-04)
PROC: 5A1221Z Performance of Cardiac Output, Continuous (ICD-10-PCS; principal; 2021-04-04)
PROC: 02100Z9 Bypass Coronary Artery, One Artery from Left Internal Mammary, Open Approach (ICD-10-PCS; principal; 2021-04-04)
PROC: 05HY33Z Insertion of Infusion Device into Upper Vein, Percutaneous Approach (ICD-10-PCS; 2021-04-07)
DX: I25.10 Atherosclerotic heart disease of native coronary artery without angina pectoris (principal); I50.43 Acute on chronic combined systolic (congestive) and diastolic (congestive) heart failure; D62 Acute posthemorrhagic anemia; I74.5 Embolism and thrombosis of iliac artery; J93.9 Pneumothorax, unspecified; I47.2 Ventricular tachycardia; I13.0 Hypertensive heart and chronic kidney disease with heart failure and stage 1 through stage 4 chronic kidney disease, or unspecified chronic kidney disease; I25.5 Ischemic cardiomyopathy; N18.9 Chronic kidney disease, unspecified; E78.5 Hyperlipidemia, unspecified; I12.9 Hypertensive chronic kidney disease with stage 1 through stage 4 chronic kidney disease, or unspecified chronic kidney disease; E11.22 Type 2 diabetes mellitus with diabetic chronic kidney disease; I70.8 Atherosclerosis of other arteries; E11.65 Type 2 diabetes mellitus with hyperglycemia; Z79.82 Long term (current) use of aspirin; Z79.899 Other long term (current) drug therapy
CPT/HCPCS: 10078; 10081; 47000; 47001; 47002; 47297; 48889; 50249; 50668; 51301; 52259; 52287; 53327; 53358; 54118; 56455; 56524; 56525; 56526; 56527; 56528; 56531; 56534; 56668; 56719; 56760; 56898; 57093; 57167; 58585; 58856; 58901; 58918; 62110; 62950; 65003; 65090; 65120; 65135; 83006; 85076